=== PATIENT | male | born 1985 | race Caucasian/White ===

== ENCOUNTER 2019-06-25 16:32 | Emergency (ER) | payer OTHER ==
[~2019-06-25] VITALS: Ht 175.3 cm; Wt 89.5 kg
[2019-06-25] MEDS ORDERED: IBUPROFEN 800 MG TAB PO ONE (20:45)
[2019-06-25] MEDS ORDERED: CYCLOBENZAPRINE 10 MG TAB PO ONE (20:45)
[2019-06-25] MEDS ORDERED: IBUP80TA PO (20:49)
[2019-06-25] MEDS ORDERED: CYCL10TA PO (20:49)
[2019-06-25 20:58] VITALS: BP 126/84
== END 2019-06-25 21:01 | disposition home or self-care (01) ==
LOC: M ED 16:32
DX: M54.5 Low back pain (principal); F17.200 Nicotine dependence, unspecified, uncomplicated